=== PATIENT | male | born 1940 | race Caucasian/White ===

== ENCOUNTER → 2018-01-26 | Outpatient (CLI) | payer MEDICARE, BC ==
--- NOTE | 2018-01-26 13:25 | XR ---
EXAMINATION TYPE: XR chest 2V DATE OF EXAM: 01/26/2018 COMPARISON: 02/15/2012 HISTORY: 78-year-old male with persistent cough for 2 weeks, previous right lower lobectomy for mesot helioma. TECHNIQUE: Frontal and lateral views FINDINGS: Heart normal size. Aorta and pulmonary vasculature within normal limits. Focal right basilar opacitie s with blunted costophrenic angle are unchanged from 2012 suggesting pleural-parenchymal scarring and volume loss relating to the patient's prior lobectomy. There is a focal density peripheral right low er lung and a more vague density peripheral left midlung which are stable. Calcifications along the h emidiaphragm on the lateral view are unchanged. No new area of consolidation or pleural effusion seen . IMPRESSION: Chronic changes with postlobectomy changes on the right and vague densities on both sides probably re lated to pleural plaques. Underlying COPD. No acute change from 2012. For more detailed assessment of the parenchyma, especially given the patient's past history of neoplasm, a CT can be performed.
== END | disposition home or self-care (01) ==
LOC: RADXRMAIN 12:47
PROVIDERS: ATTEND Internal Medicine
DX: J44.9 Chronic obstructive pulmonary disease, unspecified (principal); J98.4 Other disorders of lung; Z85.89 Personal history of malignant neoplasm of other organs and systems; Z90.2 Acquired absence of lung [part of]
CPT/HCPCS: 71046

== ENCOUNTER → 2019-07-25 | Outpatient (CLI) | payer MEDICARE ==
[~2019-07-25] MED LIST: REGADENOSON 0.4 MG/5 ML SYRINGE IV ONE
--- NOTE | 2019-07-25 11:00 | ECHOF ---
Referral Reason:R06.02 SOB, R07.9 CP MEASUREMENTS -------- HEIGHT: 182.9 cm WEIGHT: 113.4 kg BP: IVSd: 0.9 cm (0.6 - 1.1) LVIDd: 4.5 cm (3.9 - 5.3) LVPWd: 1.0 cm (0.6 - 1.1) IVSs: 1.2 cm LVIDs: 2.3 cm LVPWs: 1.2 cm LAESV Index (A-L): 17.43 ml/m Ao Diam: 3.4 cm (2.0 - 3.7) AV Cusp: 2.5 cm (1.5 - 2.6) LA Diam: 4.0 cm (2.7 - 3.8) MV E Seb: 0.98 m/s MV DecT: 188 ms MV A Seb: 1.09 m/s MV E/A Ratio: 0.89 RAP: 5.00 mmHg RVSP: 8.03 mmHg TAPSE: 2.91 cm FINDINGS -------- Sinus rhythm. This was a technically adequate study. The left ventricular size is normal. Left ventricular wall thickness is normal. Overall left vent ricular systolic function is normal with, an EF between 55 - 60 %. The diastolic filling pattern is normal for the age of the patient 14.53. The right ventricle is normal in size. Normal LA size by volume 22+/-6 ml/m2. The right atrial size is normal. Interatrial and interventricular septum intact. The aortic valve is trileaflet, and appears structurally normal. No aortic stenosis or regurgitation. The mitral valve leaflets are mildly thickened. There is trace to mild mitral regurgitation. The tricuspid valve appears structurally normal. Trace tricuspid regurgitation present. Right ben tricular systolic pressure is normal at < 35 mmHg. There is no pulmonic regurgitation present. The aortic root size is normal. Normal inferior vena cava with normal inspiratory collapse consistent with estimated right atrial pre ssure of 5 mmHg. There is no pericardial effusion. CONCLUSIONS -------- 1. Sinus rhythm. 2. This was a technically adequate study. 3. The left ventricular size is normal. 4. Left ventricular wall thickness is normal. 5. Overall left ventricular systolic function is normal with, an EF between 55 - 60 %. 6. The diastolic filling pattern is normal for the age of the patient 14.53 7. Normal LA size by volume 22+/-6 ml/m2. 8. The aortic valve is trileaflet, and appears structurally normal. No aortic stenosis or regurgitati on. 9. The mitral valve leaflets are mildly thickened. 10. There is trace to mild mitral regurgitation. 11. The tricuspid valve appears structurally normal. 12. Trace tricuspid regurgitation present. 13. Right ventricular systolic pressure is normal at < 35 mmHg. 14. There is no pulmonic regurgitation present. 15. The aortic root size is normal. 16. Normal inferior vena cava with normal inspiratory collapse consistent with estimated right atrial pressure of 5 mmHg. 17. There is no pericardial effusion. JINRIKISHA DRIVER: Zahra Pascal RDCS
--- NOTE | 2019-07-25 11:58 | NM ---
EXAMINATION TYPE: NM stress lexiscan cardiolite DATE OF EXAM: 07/25/2019 COMPARISON: NONE HISTORY: This of breath, hypertension and COPD TECHNIQUE: After the intravenous administration of 10.55 mCi Tc 99m Sestamibi - Cardiolite resting S PECT images acquired 45 minutes post injection. The patient received 0.4mg Lexiscan, 25.2 mCi Tc 99m Sestamibi - Stress images obtained [address] injection FINDINGS: Review of stress and rest SPECT images demonstrates no distinct perfusion abnormality. Gated analysi s shows normal wall motion with an estimated left ventricular ejection fraction of 72 %. Consider echocardiographic correlation for elevated ejection fraction. No pharmacologically induced l eft ventricular myocardial ischemia is evident IMPRESSION: No scintigraphic evidence for reversible ischemia.
--- NOTE | 2019-07-25 11:59 | EST ---
EXERCISE STRESS DATE OF SERVICE: 07/25/2019 AGE: 79 SEX: Male HT: 72" WT: 250 pounds PROTOCOL: Lexiscan Cardiolite STAGE: DURATION OF EXERCISE: HEART RATE REST: 68 BLOOD PRESSURE REST: 129/68 MAXIMUM HEART RATE ACHIEVED: 85 MAXIMUM BLOOD PRESSURE: 150/55 85% MPHR: 100% MPHR: METS: INDICATIONS: CLINICAL INFORMATION: Baseline rhythm is sinus mechanism, rate of 68, normal axis and intervals, normal electrocardiogram. Baseline blood pressure 129/68 mmHg. Patient received an injection of Lexiscan. Electrocardiograph monitoring revealed no evidence of diagnostic ischemic ST deviation. Cardiolite was injected per protocol. CONCLUSION: 1. Nondiagnostic electrocardiograph stress testing. 2. Nuclear images will be reported separately. MMODL / IJN: [id number] /
== END | disposition home or self-care (01) ==
LOC: RADNMMAIN 08:10
PROVIDERS: ATTEND Internal Medicine Interventional Cardiology
DX: I34.0 Nonrheumatic mitral (valve) insufficiency (principal); R07.9 Chest pain, unspecified
CPT/HCPCS: 93017; 93306; 78452; A9500; J2785

== ENCOUNTER → 2019-08-23 | Outpatient (CLI) | payer MEDICARE ==
[2019-08-23 13:19] LABS: African American GFR (CKD) >90 (>60 ml/min/1.73 sqM); Blood Urea Nitrogen 16 mg/dL (9-20)
--- NOTE | 2019-08-23 16:27 | CT ---
EXAMINATION TYPE: CT urogram wo/w con DATE OF EXAM: 08/23/2019 COMPARISON: None INDICATION: Hematospermia history of lung cancer DLP: 3884.1 mGycm, Automated exposure control for dose reduction was used. CONTRAST: 100 mL of Isovue 300. Study performed without Oral Contrast TECHNIQUE: Axial images were obtained from above the diaphragm to the pubic rami in the axial plane a t 5 mm thick sections. Reconstructed images are reviewed on the computer in the coronal plane. FINDINGS: Limited CT sections are obtained the lung bases. The lung bases are clear. Pleural plaques are pres ent. Some calcifications along the right diaphragm. Prior asbestos exposure should be considered. The re is a small nodule in the periphery of the posterior lateral left lung base measuring 0.3 cm. Serie s 6 image 6. Some thickening may be along the anterior left lung base margin. A punctate density with in the peripheral anterior left lung. CT ABDOMEN: Liver: Normal Spleen: Normal Pancreas: Normal Adrenal glands: The adrenal glands are normal. Gallbladder: Normal Kidneys: No masses are evident. No hydronephrosis is present. No cysts are present. Delayed images were obtained through the kidneys, which remain unremarkable. Three-D reconstructed images performed on a separate computer forensic examiner are presented. There is du plication of the right renal collecting system. Renal calyces and infundibulum appear normal. No dila yvonne ureter is evident. The mid to inferior portion of the left ureter and the inferior portion of the right ureters aren't not visualized on the reconstructed images. Source images and reconstructed cor onal images small portion of the distal ureters visualized appear unremarkable. Aorta: Vascular calcification is within the aorta. Inferior vena cava: Normal. CT PELVIS: Loops of bowel within the abdomen and pelvis are normal. Study is performed without oral contrast limiting bowel evaluation. Fecal debris is within the colon. Appendix: Normal as visualized. Urinary bladder: Urinary bladder filling with contrast appears within normal limits Genitourinary structures: Prostate is somewhat prominent. Suspicious changes are now evident. Seminal vesicles appear unremarkable and are likely small. Osseous structures: No suspicious lytic or sclerotic lesions. IMPRESSIONS: 1. Visualized portions of the renal collecting system appear normal on this CT 3-D urogram. 2. Pleural plaques with calcification compatible with prior asbestos exposure
== END | disposition home or self-care (01) ==
LOC: RADCTMAIN 12:37
PROVIDERS: ATTEND Urology
DX: R36.1 Hematospermia (principal); Z88.2 Allergy status to sulfonamides
CPT/HCPCS: 84153; 82565; 84520; 74178; 36415; 74400; Q9967

== ENCOUNTER → 2021-05-13 | Outpatient (CLI) | payer MEDICARE ==
--- NOTE | 2021-05-13 13:52 | XR ---
EXAMINATION TYPE: XR chest 2V DATE OF EXAM: 05/13/2021 COMPARISON: 01/26/2018 HISTORY: H/O Lung CA/SOB TECHNIQUE: Frontal and lateral views of the chest are obtained. FINDINGS: Scattered senescent parenchymal changes noted. Hyperinflation compatible with COPD. Tenting right hem idiaphragm with postoperative changes noted stable relative to the prior study. No evidence for infiltrate. No evidence for atelectasis. Heart size is stable. Mediastinal structures are stable and grossly unremarkable. No evidence for hilar prominence. Degenerative changes dorsal spine. IMPRESSION: 1. No evidence for acute pulmonary disease.
== END | disposition home or self-care (01) ==
LOC: RADXRMAIN 12:02
PROVIDERS: ATTEND Family Medicine
DX: Z08 Encounter for follow-up examination after completed treatment for malignant neoplasm (principal); Z85.118 Personal history of other malignant neoplasm of bronchus and lung; R06.02 Shortness of breath
CPT/HCPCS: 71046

== ENCOUNTER 2021-06-25 08:12 | Day surgery (SDC) | payer MEDICARE ==
[2021-06-22 14:04] VITALS: BMI 31.8
[~2021-06-25 08:12] MED LIST changes: +LACTATED RINGERS 1,000 ML IV SCH; -REGADENOSON 0.4 MG/5 ML SYRINGE IV ONE
[2021-06-25 08:45] VITALS: RESP 18; TEMP 98
[2021-06-25] MEDS ORDERED: LACTATED RINGERS 1,000 ML IV ONE (08:45)
[2021-06-25 08:53] LABS: Glucose,Whole Blood 142 mg/dL (75-99)
[2021-06-25] MEDS ORDERED: LIDOCAINE 1% INJ 10MG/ML (20 ML MDV) ONE (09:25)
[2021-06-25] MEDS ORDERED: PROPOFOL 10 MG/ML 20 ML VIAL IV ONE (09:25)
--- NOTE | 2021-06-25 09:30 | P.GSHP ---
History of Present Illness H&P Date: 06/25/21 Chief Complaint: Screening colonoscopy Is a 81-year-old male who presents today for screening colonoscopy. Patient denies a significant GI complaints. Past Medical History Past Medical History: Cancer, Diabetes Mellitus, Hyperlipidemia, Hypertension Additional Past Medical History / Comment(s): Lung cancer 1997, has some SOB History of Any Multi-Drug Resistant Organisms: None Reported Additional Past Surgical History / Comment(s): Cataract surgery bilat. Lobectomy Past Anesthesia/Blood Transfusion Reactions: No Reported Reaction Smoking Status: Former smoker - Past Family History Mother Family Medical History: Diabetes Mellitus Father Family Medical History: Cancer Medications and Allergies Home Medications Medication Instructions Recorded Confirmed Type Aspirin 81 mg PO DAILY 06/22/21 06/22/21 History Atorvastatin [Lipitor] 80 mg PO HS 06/22/21 06/22/21 History Cholecalciferol (Vitamin D3) 12.5 mcg PO DAILY 06/22/21 06/22/21 History [Vitamin D3 (500 Iu/5 ML)] Fenofibrate Nanocrystallized 48 mg PO DAILY 06/22/21 06/22/21 History [Tricor] Multivitamins, Thera [Multivitamin 1 tab PO DAILY 06/22/21 06/22/21 History (formulary)] Pioglitazone [Actos] 45 mg PO DAILY 06/22/21 06/22/21 History Valsartan 80 mg PO DAILY 06/22/21 06/22/21 History glipiZIDE [Glucotrol] 10 mg PO AC-BRKFST 06/22/21 06/22/21 History Allergies Allergy/AdvReac Type Severity Reaction Status Date / Time Sulfa (Sulfonamide AdvReac Rash/Hives Unverified 06/22/21 13:50 Antibiotics) Surgical - Exam Vital Signs Temp Pulse Resp BP Pulse Ox 98.0 F 92 18 170/74 96 06/25/21 08:44 06/25/21 08:44 06/25/21 08:44 06/25/21 08:44 06/25/21 08:44 - General well developed, well nourished, no distress - Eyes PERRL - ENT normal pinna - Neck no masses - Respiratory normal expansion - Cardiovascular Rhythm: regular - Abdomen Abdomen: soft, non tender Results - Labs Abnormal Lab Results - Last 24 Hours (Table) 06/25/21 Range/Units 08:52 POC Glucose (mg/dL) 142 H (75-99) mg/dL Assessment and Plan Assessment: We'll perform screening colonoscopy
--- NOTE | 2021-06-25 09:44 | P.OP ---
Date of Procedure: 06/25/21 Preoperative Diagnosis: Screening colonoscopy Postoperative Diagnosis: Mild diverticulosis External hemorrhoids Cecum not visualized Procedure(s) Performed: Colonoscopy Anesthesia: MAC Surgeon: Daniel Meadows Pathology: none sent Condition: stable Disposition: PACU Description of Procedure: Patient's placed on the endoscopy table in the lateral position. He received IV cyst. Digital rectal exam was performed which revealed a few external hemorrhoids. Possible colonoscope was then placed patient anus passed with colon. Scope could not passed in the cecum secondary to tortuosity of the bowel in the patient's inability to retain air in the colon. Scope was withdrawn. The remainder the ascending colon, transverse colon and descending colon appeared normal. Sigmoid colon a few scattered diverticula. Scope was then brought back the rectum and this appeared normal. Scope withdrawn for patient.
[2021-06-25 09:51] VITALS: PULSE 93
[2021-06-25 10:03] VITALS: BP 137/74
--- NOTE | 2021-06-25 10:21 | P.OP ---
Date of Procedure: 06/25/21 Preoperative Diagnosis: Screen colonoscopy Postoperative Diagnosis: Normal colon Procedure(s) Performed: Colonoscopy Anesthesia: PATA Surgeon: Daniel Meadows Pathology: none sent Condition: stable Disposition: PACU Description of Procedure: Normal colonoscopy
== END 2021-06-25 10:28 | disposition home or self-care (01) ==
LOC: ORWHC2ENDO 08:12
PROVIDERS: ATTEND Surgery
DX: Z12.11 Encounter for screening for malignant neoplasm of colon (principal); E11.9 Type 2 diabetes mellitus without complications; E78.5 Hyperlipidemia, unspecified; I10 Essential (primary) hypertension; K64.4 Residual hemorrhoidal skin tags; Z79.82 Long term (current) use of aspirin; Z79.84 Long term (current) use of oral hypoglycemic drugs; Z83.3 Family history of diabetes mellitus; Z85.118 Personal history of other malignant neoplasm of bronchus and lung; Z87.891 Personal history of nicotine dependence; Z88.2 Allergy status to sulfonamides
CPT/HCPCS: 45378; J2001; J2704

== ENCOUNTER → 2022-04-02 | Outpatient (CLI) | payer MEDICARE ==
--- NOTE | 2022-04-02 10:13 | CT ---
EXAMINATION TYPE: CT chest wo con DATE OF EXAM: 04/02/2022 COMPARISON: Chest x-ray May 13, 2021 and older study 2018 HISTORY: Emphysema CT DLP: 1016.3 mGycm. Automated Exposure Control for Dose Reduction was Utilized. TECHNIQUE: CT scan of the thorax is performed without IV contrast. High resolution protocol with 1 m m sequences obtained in 10 mm intervals in supine and prone technique. FINDINGS: LUNGS: Calcified bilateral pleural plaques are present suggesting prior his last dose exposure. There is mild to moderate parenchymal fibrotic changes in the mid to lower lungs. Curvilinear small pleura l thickening in the posterior right lung base. No bronchiectasis. No honeycombing or end-stage fibros is. Mild scattered peripheral reticulation. No pleural effusion. MEDIASTINUM: Lack of IV contrast and technique are noted to limit evaluation for mediastinal and minerva cially hilar adenopathy. There are no definitive greater than 1 cm noncalcified mediastinal lymph nod es. Heart size within normal limits. There is moderate to severe three-vessel coronary artery calcifi cation. OTHER: No additional significant abnormality is seen. IMPRESSION: [id number] scattered parenchymal fibrotic changes. Bilateral calcified pleural plaq ues raise concern for prior asbestos exposure. Correlate clinically.
== END | disposition home or self-care (01) ==
LOC: RADCTMAIN 08:49
PROVIDERS: ATTEND Internal Medicine Critical Care Medicine
DX: J43.9 Emphysema, unspecified (principal)
CPT/HCPCS: 71250

== ENCOUNTER 2024-03-15 09:09 | Observation (INO) | payer MEDICARE ==
--- NOTE | 2024-03-15 10:11 | CT ---
EXAMINATION TYPE: CT brain melyssa dale con DATE OF EXAM: 03/15/2024 COMPARISON: None. HISTORY: fall CT DLP: 1323.[address] of the brain was performed. The ventricles, basal cisterns and sulci overlying the cerebral convexities demonstrate mild enlargem ent. There is no evidence for intracranial hemorrhage or sulcal effacement. There is decreased attenuatio n about the periventricular white matter and deep white matter of both cerebral hemispheres, compatib le with chronic small vessel ischemia. No mass effects are seen. If symptoms persist consider MRI. Osseous calvarium is intact. IMPRESSION: 1. Age related atrophic and chronic small vessel ischemic change without acute intracranial process seen at this time. CT Cervical Spine: Unenhanced CT of the cervical spine was performed with bone and soft tissue window settings submitted . Coronal and sagittal reconstruction is obtained. There is normal alignment and prevertebral soft tissues. No evidence for acute cervical fracture . Scattered degenerative disc disease and spondylosis. Biapical scarring. IMPRESSION: 1. No evidence for acute fracture or subluxation of the cervical spine.
--- NOTE | 2024-03-15 10:16 | ED ---
General Adult HPI - General Chief complaint: Fall Stated complaint: fall Time Seen by Provider: 03/15/24 09:22 Source: patient, RN notes reviewed, old records reviewed Mode of arrival: ambulatory Limitations: no limitations - History of Present Illness Initial comments: 84-year-old male presenting from home status post weakness with 2 falls. Patient had initially fall after getting up from his chair with left leg weakness falling onto his knees and twisting his ankle. He did have head trauma with no LOC. He is complaining of some neck pain. Patient had significant difficulty ambulating after these falls and paramedics were called for lift assi st. Ultimately the patient woke up this morning with continued weakness and had contacted his son who brought him to the emergency room. - Related Data Home Medications Medication Instructions Recorded Confirmed Aspirin 81 mg PO DAILY 06/22/21 06/22/21 Atorvastatin [Lipitor] 80 mg PO HS 06/22/21 06/22/21 Cholecalciferol (Vitamin D3) 12.5 mcg PO DAILY 06/22/21 06/22/21 [Vitamin D3 (500 Iu/5 ML)] Fenofibrate Nanocrystallized 48 mg PO DAILY 06/22/21 06/22/21 [Tricor] Multivitamins, Thera [Multivitamin 1 tab PO DAILY 06/22/21 06/22/21 (formulary)] Pioglitazone [Actos] 45 mg PO DAILY 06/22/21 06/22/21 Valsartan 80 mg PO DAILY 06/22/21 06/22/21 glipiZIDE [Glucotrol] 10 mg PO AC-[id number] 06/22/21 06/22/21 Allergies Allergy/AdvReac Type Severity Reaction Status Date / Time Sulfa (Sulfonamide AdvReac Rash/Hives Unverified 03/15/24 09:19 Antibiotics) Review of Systems ROS Statement: Those systems with pertinent positive or pertinent negative responses have been documented in the HPI. ROS Other: All systems not noted in ROS Statement are negative. Past Medical History Past Medical History: Diabetes Mellitus, Hyperlipidemia History of Any Multi-Drug Resistant Organisms: None Reported Past Surgical History: No Surgical Hx Reported Past Psychological History: No Psychological Hx Reported Smoking Status: Former smoker Past Alcohol Use History: Occasional Past Drug Use History: None Reported General Exam Limitations: no limitations General appearance: alert, in no apparent distress Head exam: Present: atraumatic, normocephalic Eye exam: Present: normal appearance, PERRL ENT exam: Present: normal exam Neck exam: Present: normal inspection. Absent: tenderness, meningismus Respiratory exam: Present: normal lung sounds bilaterally. Absent: respiratory distress, wheezes Cardiovascular Exam: Present: regular rate, normal rhythm GI/Abdominal exam: Present: soft. Absent: distended, tenderness, guarding Extremities exam: Present: joint swelling (Mild soft tissue swelling bilateral knees) Neurological exam: Present: alert, oriented X3, CN II-XII intact. Absent: motor sensory deficit Skin exam: Present: warm, dry, intact Course Vital Signs 03/15/24 03/15/24 03/15/24 09:16 10:28 12:32 Temperature 98.3 F 97.8 F 98.1 F Pulse Rate 102 H 100 89 Respiratory 20 18 18 Rate Blood Pressure 126/74 122/75 131/75 O2 Sat by Pulse 99 96 96 Oximetry Medical Decision Making - Medical Decision Making Was pt. sent in by a medical professional or institution (, PA, FILEMAKER DEVELOPER, urgent care, hospital, or intermediate...) When possible be specific @ -No Did you speak to anyone other than the patient for history (EMS, parent, family, police, friend...)? What history was obtained from this source @ -No Did you review nursing and triage notes (agree or disagree)? Why? @ -I reviewed and agree with nursing and triage notes Were old charts reviewed (outside hosp., previous admission, EMS record, old EKG, old radiological studies, urgent care reports/EKG's, intermediate records)? Report findings @ -No old charts were reviewed Differential Musculoskeletal Muscular strain, contusion, ligament sprain, fracture, arthritis, septic arthritis, bursitis, cellulitis, muscle spasm, nerve compression, DVT, arterial occlusion, herpes zoster, electrolyte abnormality, tumor.... This is not meant to be in all inclusive list EKG interpreted by me (3pts min.). @ -As above X-rays interpreted by me (1pt min.). @ -[X-rays of the bilateral knees and left ankle are negative for displaced fracture CT interpreted by me (1pt min.). @ -CT brain and C-spine negative for traumatic injury. U/S interpreted by me (1pt. min.). @ -None done What testing was considered but not performed or refused? (CT, X-rays, U/S, labs)? Why? @ -None What meds were considered but not given or refused? Why? @ -None Did you discuss the management of the patient with other professionals (professionals i.e. , PA, FILEMAKER DEVELOPER, lab, RT, psych nurse, social media intern, deputy attorney general, teacher, first aid officer, ed case manager)? Give summary @ -Dr. Garcia, will admit Was smoking cessation discussed for >3mins.? @ -No Was critical care preformed (if so, how long)? @ -No Were there social determinants of health that impacted care today? How? (Homelessness, low income, unemployed, alcoholism, drug addiction, transportation, low edu. Level, literacy, decrease access to med. care, fdc, rehab)? @ -No Was there de-escalation of care discussed even if they declined (Discuss DNR or withdrawal of care, Hospice)? DNR status @ -No What co-morbidities impacted this encounter? (DM, HTN, Smoking, COPD, CAD, Cancer, CVA, ARF, Chemo, Hep., AIDS, mental health diagnosis, sleep apnea, morbid obesity)? @ -None Was patient admitted / discharged? Hospital course, mention meds given and route, prescriptions, significant lab abnormalities, going to OR and other pertinent info. @ -84-year-old male with multiple falls over the past 12 hours, weakness in the lower extremities. Workup for traumatic injury is negative. The patient does have gait instability and lives alone. He will be placed in observation with consult to PT for evaluation. Undiagnosed new problem with uncertain prognosis? @ -No Drug Therapy requiring intensive monitoring for toxicity (Heparin, Nitro, Insulin, Cardizem)? @ -No Were any procedures done? @ -No Diagnosis/symptom? @Gait instability, frequent fall Acute, or Chronic, or Acute on Chronic? @ -Acute Uncomplicated (without systemic symptoms) or Complicated (systemic symptoms)? @ -Default Side effects of treatment? @ -No Exacerbation, Progression, or Severe Exacerbation? @ -No Poses a threat to life or bodily function? How? (Chest pain, USA, SD, pneumonia, PE, COPD, DKA, ARF, appy, cholecystitis, CVA, Diverticulitis, Homicidal, Suicidal, threat to staff... and all critical care pts) @ -No - Lab Data Result diagrams: 03/15/24 11:52 03/15/24 11:52 Lab Results 03/15/24 03/15/24 03/15/24 Range/Units 11:52 11:52 11:52 WBC 7.6 (3.8-10.6) k/uL RBC 4.30 (4.30-5.90) m/uL Hgb 14.7 (13.0-17.5) gm/dL Hct 44.2 (39.0-53.0) % MCV 102.8 H (80.0-100.0) fL MCH 34.2 (25.0-35.0) pg MCHC 33.2 (31.0-37.0) g/dL RDW 13.3 (11.5-15.5) % Plt Count 240 (150-450) k/uL MPV 7.0 Neutrophils % 79 % Lymphocytes % 12 % Monocytes % 6 % Eosinophils % 0 % Basophils % 1 % Neutrophils # 6.0 (1.3-7.7) k/uL Lymphocytes # 0.9 L (1.0-4.8) k/uL Monocytes # 0.5 (0-1.0) k/uL Eosinophils # 0.0 (0-0.7) k/uL Basophils # 0.0 (0-0.2) k/uL Macrocytosis Slight Sodium 133 L (137-145) mmol/L Potassium 4.4 (3.5-5.1) mmol/L Chloride 100 (98-107) mmol/L Carbon Dioxide 25 (22-30) mmol/L Anion Gap 8 mmol/L BUN 12 (9-20) mg/dL Creatinine 0.64 L (0.66-1.25) mg/dL Est GFR (CKD-EPI)AfAm >90 (>60 ml/min/1.73 sqM) Est GFR (CKD-EPI)NonAf >90 (>60 ml/min/1.73 sqM) Glucose 115 H (74-99) mg/dL POC Glucose (mg/dL) (70-110) mg/dL POC Glu Investigation Officer ID Calcium 8.7 (8.4-10.2) mg/dL Total Bilirubin 1.2 (0.2-1.3) mg/dL AST 43 (17-59) U/L ALT 26 (4-49) U/L Alkaline Phosphatase 82 (38-126) U/L Total Protein 7.0 (6.3-8.2) g/dL Albumin 4.2 (3.5-5.0) g/dL Urine Color Colorless Urine Appearance Clear (Clear) Urine pH 5.0 (5.0-8.0) Ur Specific [place] 1.019 (1.001-1.035) Urine Protein Negative (Negative) Urine Glucose (UA) 4+ H (Negative) Urine Ketones 1+ H (Negative) Urine Blood Negative (Negative) Urine Nitrite Negative (Negative) Urine Bilirubin Negative (Negative) Urine Urobilinogen <2.0 (<2.0) mg/dL Ur Leukocyte Esterase Negative (Negative) 03/15/24 Range/Units 12:47 WBC (3.8-10.6) k/uL RBC (4.30-5.90) m/uL Hgb (13.0-17.5) gm/dL Hct (39.0-53.0) % MCV (80.0-100.0) fL MCH (25.0-35.0) pg MCHC (31.0-37.0) g/dL RDW (11.5-15.5) % Plt Count (150-450) k/uL MPV Neutrophils % % Lymphocytes % % Monocytes % % Eosinophils % % Basophils % % Neutrophils # (1.3-7.7) k/uL Lymphocytes # (1.0-4.8) k/uL Monocytes # (0-1.0) k/uL Eosinophils # (0-0.7) k/uL Basophils # (0-0.2) k/uL Macrocytosis Sodium (137-145) mmol/L Potassium (3.5-5.1) mmol/L Chloride (98-107) mmol/L Carbon Dioxide (22-30) mmol/L Anion Gap mmol/L BUN (9-20) mg/dL Creatinine (0.66-1.25) mg/dL Est GFR (CKD-EPI)AfAm (>60 ml/min/1.73 sqM) Est GFR (CKD-EPI)NonAf (>60 ml/min/1.73 sqM) Glucose (74-99) mg/dL POC Glucose (mg/dL) 118 H (70-110) mg/dL POC Glu Investigation Officer ID Veto [place] Calcium (8.4-10.2) mg/dL Total Bilirubin (0.2-1.3) mg/dL AST (17-59) U/L ALT (4-49) U/L Alkaline Phosphatase (38-126) U/L Total Protein (6.3-8.2) g/dL Albumin (3.5-5.0) g/dL Urine Color Urine Appearance (Clear) Urine pH (5.0-8.0) Ur Specific [place] (1.001-1.035) Urine Protein (Negative) Urine Glucose (UA) (Negative) Urine Ketones (Negative) Urine Blood (Negative) Urine Nitrite (Negative) Urine Bilirubin (Negative) Urine Urobilinogen (<2.0) mg/dL Ur Leukocyte Esterase (Negative) Disposition Clinical Impression: Fall, Gait instability Disposition: ADMITTED IP TO THIS [facility] Condition: Stable Is patient prescribed a controlled substance at d/c from ED?: No Referrals: Nazario Morin MD [Primary Care Provider] - 1-2 days Time of Disposition: 12:57
--- NOTE | 2024-03-15 11:07 | XR ---
EXAMINATION TYPE: XR knee complete bilateral DATE OF EXAM: 03/15/2024 10:22 AM CLINICAL INDICATION:Male, 84 years old with history of fall; COMPARISON: None. TECHNIQUE: XR knee complete bilateral; examined in Frontal, lateral and oblique projections. FINDINGS: No evidence of any acute osseous pathology, soft tissue swelling, or joint effusion is no yvonne. Tricompartmental osteophyte formation involving the femoral condyles, tibial plateau and patella . Mild joint space narrowing. Discussed the arterial vasculature. Fabella is seen bilaterally. IMPRESSION: 1. No acute osseous pathology. 2. Moderate tricompartmental osteoarthritic changes bilaterally.
--- NOTE | 2024-03-15 11:09 | XR ---
EXAMINATION TYPE: XR ankle complete LT DATE OF EXAM: 03/15/2024 10:22 AM CLINICAL INDICATION:Male, 84 years old with history of fall; COMPARISON: None TECHNIQUE: XR ankle complete LT; ankle is imaged in frontal, lateral and oblique projections. FINDINGS: There is no evidence of acute osseous pathology. The joint spaces are well-preserved without evidenc e of subluxation or dislocation. Kager's fat pad is intact. Mild soft tissue swelling around the ankl e. No radiopaque foreign bodies are identified. Multifocal degeneration changes throughout the joints of the foot with osteophyte formation and joint space narrowing. Atherosclerosis of the arterial vasculature. Calcaneal plantar spurring. IMPRESSION: 1. No evidence of acute fracture. 2. Subcutaneous swelling around the ankle likely secondary to underlying soft tissue injury.
[2024-03-15] MEDS: SODIUM CHLORIDE 0.9% 500 ML 500 ML IV ONE (11:57)
[2024-03-15 12:14] LABS: Appearance,Urine Clear (Clear); Bilirubin,Urine Negative (Negative); Blood,Urine Negative (Negative); Color,Urine Colorless; Glucose,Urine (UA) 4+ (Negative); Ketones,Urine 1+ (Negative); Leukocyte Esterase,Urine Negative (Negative); Nitrite,Urine Negative (Negative); Protein,Urine Negative (Negative); Specific Gravity,Urine 1.019 (1.001-1.035); Urobilinogen,Urine <2.0 mg/dL (<2.0)
[2024-03-15 12:21] LABS: ALT 26 U/L (4-49); AST 43 U/L (17-59); African American GFR (CKD) >90 (>60 ml/min/1.73 sqM); Albumin 4.2 g/dL (3.5-5.0); Alkaline Phosphatase 82 U/L (38-126); Anion Gap 8 mmol/L; Blood Urea Nitrogen 12 mg/dL (9-20); Calcium 8.7 mg/dL (8.4-10.2); Carbon Dioxide 25 mmol/L (22-30); Chloride 100 mmol/L (98-107); Glucose 115 mg/dL (74-99); Non-African American GFR(CKD) >90 (>60 ml/min/1.73 sqM); Potassium 4.4 mmol/L (3.5-5.1); Sodium 133 mmol/L (137-145); Total Bilirubin 1.2 mg/dL (0.2-1.3)
[2024-03-15 12:24] LABS: Basophils % (A) 1 %; Eosinophils % (A) 0 %; HCT 44.2 % (39.0-53.0); HGB 14.7 gm/dL (13.0-17.5); Lymphocytes # (A) 0.9 k/uL (1.0-4.8); Lymphocytes % (A) 12 %; MCH 34.2 pg (25.0-35.0); MCHC 33.2 g/dL (31.0-37.0); MCV 102.8 fL (80.0-100.0); Macrocytosis Slight; Monocytes # (A) 0.5 k/uL (0-1.0); Monocytes % (A) 6 %; Neutrophils % (A) 79 %; Platelet Count 240 k/uL (150-450); RDW 13.3 % (11.5-15.5); WBC 7.6 k/uL (3.8-10.6)
[2024-03-15] MEDS: SODIUM CHLORIDE 0.9% 1,000 ML IV SCH (12:46)
[2024-03-15 12:49] LABS: Glucose,Whole Blood 118 mg/dL (70-110)
[2024-03-15] MEDS ORDERED: NALOXONE 0.4 MG/ML 1 ML VIAL IV PRN (12:54)
[2024-03-15] MEDS ORDERED: ALBUTEROL HFA INHALER INHALATION PRN (14:30)
[2024-03-15] MEDS: HYDROcodone/APAP 5-325MG 1 EACH TAB PO PRN (15:14)
[2024-03-15] MEDS ORDERED: DEXTROSE 50% SYRINGE 50 ML IVP PRN ×2 (16:41)
[2024-03-15 17:01] LABS: Glucose,Whole Blood 137 mg/dL (70-110)
--- NOTE | 2024-03-15 17:05 | P.HPIM ---
History of Present Illness H&P Date: 03/15/24 Patient is a 84-year-old male with a history of diabetes mellitus type 2 controlled on orals, hypertension, dyslipidemia, and COPD stage III with alcohol dependency who presented to the emergency department after falls. Patient was getting up from his chair when his left leg gave out from him and he noted it to be numb, he then fell 2 more times after this. On arrival to the ER he was noted to be tachycardic with a pulse of 102. The remainder of his vital signs were normal. Initial laboratory analysis consisted of CBC, CMP, and urinalysis which were remarkable for sodium was 133, and 4+ glucose in his urine. He underwent CT head and cervical spine which demonstrated age-related atrophic and small vessel ischemic changes without acute process, and no fracture or subluxation of the cervical spine. He underwent x-ray of his bilateral knees which showed moderate osteoarthritis but no acute pathology. He underwent x-ray of left ankle which demonstrated some swelling likely related to soft tissue injury but no evidence of fracture. He was placed in observation. Patient seen and examined at bedside. He reports that yesterday he was sitting in his chair and he woke up and went to stand. His left leg gave out from underneath him and he noted it to be numb. He was unable to get himself up EMS came and helped him to get into bed. His left leg then continued to feel weak. He got up again to go to the bathroom and fell. That time he was able to get himself back to bed using his hands and bed frame and dresser to pull himself up. He then again fell 1 more time this morning. They therefore came to the emergency department. He is noting pain in his bilateral knees, neck, and left ankle. He continues to feel weakness in his left leg. When they attempted to ambulate him in the emergency department he very unsteady on his feet and they asked for observation. Patient denies any difficulty with his left leg prior. He does have a history of neuropathy and has some chronic numbness in his legs. He now does feel that his left leg is weak. He denies any history of heart attack or stroke. Vital signs reviewed General: nontoxic, no distress, appears at stated age Derm: warm, dry Eyes: EOMI, no lid lag, anicteric sclera, pupils equal round reactive to light ENT: Nose and ears atraumatic Cardiovascular: S1S2 reg, no murmur, no edema Lungs: clear to auscultation bilateral, no rhonchi, no rales, no wheeze, no accessory muscle use Abdominal: soft, nontender to palpation, no guarding Ext: no gross muscle atrophy, no contractures For negative anterior and posterior drawer on bilateral knees, negative valgus and varus distraction bilateral knees, pain to palpation over left lateral malleolus with increased pain on inversion of the ankle. Forrest light swelling left ankle. Neuro: CN II-XII grossly intact, for finger-nose on the right, intact finger-to- nose on the left. Unable to perform [id number] using left foot due to pain, normal heel martin using right foot. Muscle strength 5 out of 5 with flexion extension at the elbow and shoulder and wrist as well as supination. Downward heel drift left leg at approximately 10 seconds, right leg normal. Light touch intact all 4 extremities. Psych: Alert, oriented, appropriate affect Assessment/Plan: Left leg weakness Fall, without loss of consciousness Dyslipidemia -Concern for possible stroke versus acute arthritis flare -Telemetry, consult neurology, neurochecks, aspirin 325 mg p.o. once then daily aspirin, Lipitor 80 mg daily, echocardiogram, carotid Dopplers -PT/OT/speech recommendations -Case discussed with Dr. Peraza and notified of consultation -Check lipid profile -Hold valsartan for 24 hours of permissive hypertension - check B 12 and vit D level Grade 1 Left Ankle Sprain - Abel weap -Rest -Elevation -Ice Diabetes mellitus type 2 on oral medications -Sliding scale insulin, follow blood sugars, check A1c -Metformin on hold -Continue with Tradjenta 5 mg daily and Farxiga 10 mg daily Daily ETOH us - Check CIWA scores - Thiamine 100 mg daily and folic acid 1 mg daily - no ativan due to advance age, nursing to call provider if CIWA > 10 COPD stage III - resume home brochdilator regiment Imaging: as per HPI Data Review: as per HPI The patient is placed in observation status with anticipated less than 2 midnight stay for left lower extremity weakness and possible TIA Surrogate decision-maker: Daughter CODE STATUS: DNR DVT prophylaxis: Lovenox Anticipated discharge date: 24-[address]: home [facility] This dictation was prepared using dragon medical voice recognition software. Though every attempt is made to correct errors during dictation some may still exist. Past Medical History Past Medical History: COPD, Diabetes Mellitus, Hyperlipidemia, Hypertension History of Any Multi-Drug Resistant Organisms: None Reported Past Surgical History: No Surgical Hx Reported Past Psychological History: No Psychological Hx Reported Smoking Status: Former smoker Past Alcohol Use History: Occasional Past Drug Use History: None Reported Medications and Allergies Home Medications Medication Instructions Recorded Confirmed Type Aspirin 81 mg PO DAILY 06/22/21 03/15/24 History Atorvastatin [Lipitor] 80 mg PO HS 06/22/21 03/15/24 History Fenofibrate Nanocrystallized 48 mg PO DAILY 06/22/21 03/15/24 History [Tricor] Multivitamins, Thera [Multivitamin 1 tab PO DAILY 06/22/21 03/15/24 History (formulary)] Valsartan 80 mg PO DAILY 06/22/21 03/15/24 History Albuterol Inhaler [Ventolin Hfa 2 puff INHALATION RT-Q6H PRN 03/15/24 03/15/24 History Inhaler] Cholecalciferol [Vitamin D3 (25 50 mcg PO DAILY 03/15/24 03/15/24 History Mcg = 1000 Iu)] Cinnamon Bark [Cinnamon] 2,000 mg PO DAILY 03/15/24 03/15/24 History Empagliflozin/Linagliptin 1 tab PO DAILY 03/15/24 03/15/24 History [Glyxambi 25 mg-5 mg Tablet] Fexofenadine HCl [Henny Allergy] 180 mg PO DAILY 03/15/24 03/15/24 History Fluticasone/Umeclidin/Vilanter 1 puff INHALATION DIRECTED 03/15/24 03/15/24 History [Trelegy Ellipta 100-62.5-25] Fluticasone/Umeclidin/Vilanter 1 puff INHALATION RT-HS 03/15/24 03/15/24 History [Trelegy Ellipta 200-62.5-25] [place]-3/Dha/Epa/Fish Oil [Fish Oil 2 cap PO DAILY 03/15/24 03/15/24 History 1,000 mg Softgel] metFORMIN HCL ER [Glucophage XR] 500 mg PO DAILY 03/15/24 03/15/24 History Allergies Allergy/AdvReac Type Severity Reaction Status Date / Time Sulfa (Sulfonamide AdvReac Rash/Hives Verified 03/15/24 13:17 Antibiotics) Physical Exam Osteopathic Statement: *. No significant issues noted on an osteopathic structural exam other than those noted in the History and Physical/Consult. Vitals: Vital Signs Temp Pulse Pulse Pulse Pulse Resp BP 03/15/24 16:55 93 109 H 91 03/15/24 12:32 98.1 F 89 18 131/75 03/15/24 10:28 97.8 F 100 18 122/75 03/15/24 09:16 98.3 F 102 H 20 126/74 BP BP BP Pulse Ox 03/15/24 16:55 125/74 131/84 145/76 03/15/24 12:32 96 03/15/24 10:28 96 03/15/24 09:16 99 Intake and Output 03/15/24 03/15/24 03/15/24 06:59 14:59 22:59 Other: Weight 91.172 kg Results CBC & Chem 7: 03/15/24 11:52 03/15/24 11:52 Labs: Abnormal Lab Results - Last 24 Hours (Table) 03/15/24 03/15/24 03/15/24 Range/Units 11:52 11:52 11:52 MCV 102.8 H (80.0-100.0) fL Lymphocytes # 0.9 L (1.0-4.8) k/uL Sodium 133 L (137-145) mmol/L Creatinine 0.64 L (0.66-1.25) mg/dL Glucose 115 H (74-99) mg/dL POC Glucose (mg/dL) (70-110) mg/dL Urine Glucose (UA) 4+ H (Negative) Urine Ketones 1+ H (Negative) 03/15/24 Range/Units 12:47 MCV (80.0-100.0) fL Lymphocytes # (1.0-4.8) k/uL Sodium (137-145) mmol/L Creatinine (0.66-1.25) mg/dL Glucose (74-99) mg/dL POC Glucose (mg/dL) 118 H (70-110) mg/dL Urine Glucose (UA) (Negative) Urine Ketones (Negative)
[2024-03-15] MEDS ORDERED: HYDROcodone/APAP 10-325MG 1 EACH TAB PO PRN (17:11)
[2024-03-15] MEDS: INSULIN ASPART (NovoLOG) 100 UNIT/ML VIAL SQ SCH (17:46)
[2024-03-15] MEDS: ASPIRIN 325 MG TAB PO STA (17:47)
--- NOTE | 2024-03-15 19:57 | US ---
EXAMINATION TYPE: US carotid duplex BILAT DATE OF EXAM: 03/15/2024 COMPARISON: NONE CLINICAL INDICATION: Male, 84 years old with history of Stenosis; hx of falls and dizziness TECHNIQUE: Carotid duplex ultrasound examination. Indirect Doppler criteria was utilized. FINDINGS: EXAM MEASUREMENTS: RIGHT: Peak Systolic Velocity (PSV) cm/sec ----- Right CCA: 80.2 ----- Right ICA: 73.1 ----- Right ECA: 119 ICA/CCA ratio: 0.91 RIGHT: End Diastole cm/sec ----- Right CCA: 9.5 ----- Right ICA: 10.7 ----- Right ECA: 12.4 LEFT: Peak Systolic Velocity (PSV) cm/sec ----- Left CCA: 102 ----- Left ICA: 118 ----- Left ECA: 118 ICA/CCA ratio: 1.16 LEFT: End Diastole cm/sec ----- Left CCA: 7.7 ----- Left ICA: 33.0 ----- Left ECA: 10.5 VERTEBRALS (direction of flow): Right Vertebral: Antegrade Left Vertebral: Antegrade Rhythm: Normal Plaque noted in bilateral bulbs IMPRESSION: Bilateral Carotid Duplex Ultrasound: No hemodynamically significant stenosis. Criteria for Assigning % of Stenosis / Diameter reduction (Estimation based on the indirect measurements of the internal carotid artery velocities (ICA PSV). 1. Normal (no stenosis)=ICA PSV < 125 cm/s: ratio < 2.0: ICA EDV<40 cm/s. 2. Less than 50% stenosis=ICA PSV < 125 cm/s: ratio < 2.0: ICA EDV<40 cm/s. 3. 50 to 69% stenosis=ICA PSV of 125 to 230 cm/s: ration 2.0 ? 4.0: ICA EDV 40-100 cm/s. 4. Greater than 70% stenosis to near occlusion= ICA PSV > 230 cm/s: ratio > 4.0: ICA EDV > 100 cm/s. 5. Near occlusion= ICA PSV velocities may be low or undetectable: variable ratio and ICA EDV. 6. Total occlusion=unable to detect flow.
[2024-03-15 20:38] LABS: Glucose,Whole Blood 144 mg/dL (70-110)
[2024-03-15] MEDS: IPRATROPIUM 0.5 MG/2.5 ML NEBU INHALATION SCH (20:51)
[2024-03-15] MEDS: SYMBICORT 160-4.5 MCG INHALER INHALATION SCH (20:51)
[2024-03-15] MEDS: ATORVASTATIN 80 MG TAB PO SCH (21:23)
[2024-03-16 05:55] LABS: Glucose,Whole Blood 122 mg/dL (70-110)
--- NOTE | 2024-03-16 07:13 | CA ---
Transthoracic Echo Report Name: Kt Rushing Age: 84 Gender: M : 1940 Exam Date: 03/15/2024 17:02 Exam Location: [place] [facility] Ht (in): 72 Wt (lb): 201 Ordering Physician: Purvi Hough DO Attending/Referring Phys: [id number], [employer] Executive Director Corinne Webb RDCS Procedure CPT: Indications: Thrombus Cardiac Hx: Technical Quality: Technically difficult study Contrast 1: Definity Total Dose (mL): 2 Contrast 2: Total Dose (mL): MEASUREMENTS (Male / Female) Normal Values 2D ECHO LVOT Diameter 2.2 cm Aortic Root Diameter 3.8 cm LV Diastolic Volume MOD BP 91.9 cm??? 67 - 155 / 56 - 104 cm??? LV Systolic Volume MOD BP 33.9 cm??? 22 - 58 / 19 - 49 cm??? LV Ejection Fraction MOD BP 63.1 % >= 55 % LV Cardiac Index MOD BP 2411.3 cm???/min???m??? LV Diastolic Volume MOD 4C 106.7 cm??? LV Systolic Volume MOD 4C 30.8 cm??? LV Ejection Fraction MOD 4C 71.1 % LV Cardiac Index MOD 4C 3155.2 cm???/min???m??? LV Diastolic Length 4C 8.7 cm LV Systolic Length 4C 6.7 cm LV Diastolic Volume MOD 2C 75.4 cm??? LV Systolic Volume MOD 2C 37.4 cm??? LV Ejection Fraction MOD 2C 50.4 % LV Cardiac Index MOD 2C 1581.0 cm???/min???m??? LV Diastolic Length 2C 8.3 cm LV Systolic Length 2C 6.9 cm DOPPLER AV Peak Velocity 96.3 cm/s AV Peak Gradient 3.7 mmHg AV Mean Velocity 59.8 cm/s AV Mean Gradient 1.7 mmHg AV Velocity Time Integral 16.4 cm LVOT Peak Velocity 93.8 cm/s LVOT Peak Gradient 3.5 mmHg LVOT Velocity Time Integral 16.7 cm LVOT Stroke Volume 64.7 cm??? LVOT Stroke Volume Index 30.3 ml/m??? LVOT Cardiac Index 2689.7 cm???/min???m??? AV Area Cont Eq vti 3.9 cm??? AV Area Cont Eq pk 3.8 cm??? Mitral E Point Velocity 58.9 cm/s Mitral A Point Velocity 80.0 cm/s Mitral E to A Ratio 0.7 MV Deceleration Time 154.1 ms MV E' Velocity 6.2 cm/s Mitral E to MV E' Ratio 9.6 FINDINGS Left Ventricle Left ventricular ejection fraction is estimated at 55-60 %. Left ventricular cavity size normal. No obvious regional wall motion abnormalities. Right Ventricle Right ventricle not well visualized. Unable to estimate the right ventricular systolic pressure. Right Atrium Right atrium not well visualized. Left Atrium Left atrium not well visualized. Mitral Valve Structurally normal mitral valve. No mitral stenosis, regurgitation or prolapse. Aortic Valve Aortic valve not well visualized. No aortic valve stenosis or regurgitation. Tricuspid Valve Structurally normal tricuspid valve. No tricuspid stenosis. No tricuspid regurgitation. Pulmonic Valve Pulmonic valve not well visualized. Pericardium No pericardial effusion. Aorta Aortic root normal. Ascending aorta not well visualized. CONCLUSIONS Technically difficult study. Definity ECHO contrast used for improved visualization of the endocardial borders (inadequate visualization of two or more contiguous segments). Normal left ventricular size and systolic function Very limited Doppler study Previewed by: Dr. Unique Pugh MD (Electronically Signed) Final Date: 16 Mar 2024 07:12
[2024-03-16] MEDS: FENOFIBRATE 54 MG TAB PO SCH (08:34)
[2024-03-16] MEDS: ENOXAPARIN 40 MG/0.4 ML SYRINGE SQ SCH (08:34)
[2024-03-16] MEDS: LINAGLIPTIN 5 MG TABLET PO SCH (08:35)
[2024-03-16] MEDS: FOLIC ACID 1 MG TAB PO SCH (08:35)
[2024-03-16] MEDS: THIAMINE 100 MG TAB PO SCH (08:35)
[2024-03-16] MEDS: MULTIVITAMINS, THERA 1 EACH TAB PO SCH (08:35)
[2024-03-16] MEDS: ASPIRIN 81 MG PO SCH (08:35)
[2024-03-16] MEDS: CHOLECALCIFEROL 25 MCG (1000 IU) TABLET PO SCH (08:35)
[2024-03-16] MEDS: LORATADINE 10 MG TAB PO SCH (08:35)
[2024-03-16] MEDS: DAPAGLIFLOZIN PROPANEDIOL 10 MG TABLET PO SCH (08:35)
[2024-03-16] MEDS: ACETAMINOPHEN TAB 325 MG TAB PO PRN (08:38)
[2024-03-16] MEDS ORDERED: metFORMIN 500 MG TAB PO SCH (09:00)
[2024-03-16] MEDS ORDERED: VALSARTAN 80 MG TAB PO SCH (09:00)
[2024-03-16 09:39] LABS: HCT 44.8 % (39.0-53.0); HGB 14.2 gm/dL (13.0-17.5); MCH 33.5 pg (25.0-35.0); MCHC 31.7 g/dL (31.0-37.0); MCV 105.4 fL (80.0-100.0); Macrocytosis Moderate; Mean Platelet Volume 7.2; Platelet Count 248 k/uL (150-450); RBC 4.25 m/uL (4.30-5.90); RDW 13.5 % (11.5-15.5); WBC 5.3 k/uL (3.8-10.6)
[2024-03-16 10:03] LABS: African American GFR (CKD) >90 (>60 ml/min/1.73 sqM); Anion Gap 6 mmol/L; Blood Urea Nitrogen 13 mg/dL (9-20); Calcium 8.3 mg/dL (8.4-10.2); Carbon Dioxide 26 mmol/L (22-30); Chloride 103 mmol/L (98-107); Glucose 169 mg/dL (74-99); Non-African American GFR(CKD) 88 (>60 ml/min/1.73 sqM); Potassium 4.2 mmol/L (3.5-5.1); Sodium 135 mmol/L (137-145)
--- NOTE | 2024-03-16 11:04 | MR ---
EXAMINATION TYPE: MR brain wo con DATE OF EXAM: 03/16/2024 10:52 AM CLINICAL INDICATION:Male, 84 years old with history of Neuro deficit, acute, stroke suspected; PHH, G ait instability, frequent falls, neuro deficit, evaluate for stroke. COMPARISON: CT 03/15/2024 TECHNIQUE: Multi planar, multi sequence imaging was performed through the brain including: T1, T2, In version recovery, Diffusion weighted imaging, and gradient echo imaging. No gadolinium was given. FINDINGS: Mild cerebral atrophy with proportional dilation of ventricular system. Scattered foci of high T2 s ignal intensity are seen within the periventricular white matter. Midline structures show no abnormal ity. Diffusion-weighted imaging shows no evidence of restricted diffusion. The susceptibility weighte d images do not reveal any evidence for micro-hemorrhage. The bone marrow signal is within normal limits. Paranasal sinuses and mastoid air cells: No significant paranasal sinus disease. Visualized orbits: Bilaterally aphakia IMPRESSION: 1. No evidence of intracranial mass or acute/subacute infarct. 2. Nonspecific white matter changes, likely secondary to small vessel ischemic disease.
[2024-03-16 11:55] LABS: Glucose,Whole Blood 143 mg/dL (70-110)
--- NOTE | 2024-03-16 12:14 | P.PN ---
Subjective Progress Note Date: 03/16/24 Patient is a 84-year-old male with a history of diabetes mellitus type 2 controlled on orals, hypertension, dyslipidemia, and COPD stage III with alcohol dependency who presented to the emergency department after falls. Patient was getting up from his chair when his left leg gave out from him and he noted it to be numb, he then fell 2 more times after this. On arrival to the ER he was noted to be tachycardic with a pulse of 102. The remainder of his vital signs were normal. Initial laboratory analysis consisted of CBC, CMP, and urinalysis which were remarkable for sodium was 133, and 4+ glucose in his urine. He underwent CT head and cervical spine which demonstrated age-related atrophic and small vessel ischemic changes without acute process, and no fracture or subluxation of the cervical spine. He underwent x-ray of his bilateral knees which showed moderate osteoarthritis but no acute pathology. He underwent x-ray of left ankle which demonstrated some swelling likely related to soft tissue injury but no evidence of fracture. He was placed in observation. Patient seen and examined at bedside. He reports that yesterday he was sitting in his chair and he woke up and went to stand. His left leg gave out from underneath him and he noted it to be numb. He was unable to get himself up EMS came and helped him to get into bed. His left leg then continued to feel weak. He got up again to go to the bathroom and fell. That time he was able to get himself back to bed using his hands and bed frame and dresser to pull himself up. He then again fell 1 more time this morning. They therefore came to the emergency department. He is noting pain in his bilateral knees, neck, and left ankle. He continues to feel weakness in his left leg. When they attempted to ambulate him in the emergency department he very unsteady on his feet and they asked for observation. Patient was referred for admission to the medicine service. Patient was seen today. Patient states that he did really well with physical therapy today. Patient states that his numbness in his feet is chronic. He states that his weakness has improved much since admission. His daughter was at bedside. Daughter is insisting that she would like him to go to a shelter facility even if it for 1 week. Per case operator daughter said that she is willing to pay [id number]. Vital signs reviewed General examination - Alert and Oriented 3 in NAD Heart - + S1S2 no murmurs Lungs - Clear to auscultation Abdomen soft NT ND +ve BS Extremities - No edema BROADCAST METEOROLOGIST - Moving all 4 extremities spontaneously Psych - Calm and cooperative Assessment/Plan: Left leg weakness Fall, without loss of consciousness Dyslipidemia -Likely due to acute on chronic debility precipitated by fall -Continue with aspirin and statin -Carotid Dopplers negative for significant stenosis -Echocardiogram is unremarkable -PT/OT -> cleared the patient to go home -Case discussed with Dr. Peraza and notified of consultation -MRI pending -Check lipid profile -A1c pending -Patient symptoms have resolved Grade 1 Left Ankle Sprain - Abel weap -Rest -Elevation -Ice Diabetes mellitus type 2 on oral medications -Metformin on hold -Continue with Tradjenta 5 mg daily and Farxiga 10 mg daily Daily ETOH us - Check CIWA scores - Thiamine 100 mg daily and folic acid 1 mg daily - no ativan due to advance age, nursing to call provider if CIWA > 10 COPD stage III - resume home brochdilator regiment Daughter is requesting for placement to a shelter facility. Per case vikki amaral daughter is willing to pay [id number] if authorization is denied by insurance. CODE STATUS: DNR DVT prophylaxis: Lovenox Objective - Vital Signs Vital signs: Vital Signs Temp 97.9 F 03/16/24 11:02 Pulse 84 03/16/24 11:02 Resp 16 03/16/24 11:02 BP 146/71 03/16/24 11:02 Pulse Ox 96 03/16/24 11:02 FiO2 Intake & Output 03/15/24 03/16/24 03/16/24 18:59 06:59 18:59 Intake Total 240 Output Total 900 Balance -660 Weight 91.172 kg Intake: Oral 240 Output: Urine 900 Other: Voiding Method Urinal Urinal - Labs CBC & Chem 7: 03/16/24 08:12 03/16/24 08:12 Labs: Abnormal Lab Results - Last 24 Hours (Table) 03/15/24 03/15/24 03/15/24 Range/Units 11:52 11:52 11:52 RBC (4.30-5.90) m/uL MCV 102.8 H (80.0-100.0) fL Lymphocytes # 0.9 L (1.0-4.8) k/uL Sodium 133 L (137-145) mmol/L Creatinine 0.64 L (0.66-1.25) mg/dL Glucose 115 H (74-99) mg/dL POC Glucose (mg/dL) (70-110) mg/dL Calcium (8.4-10.2) mg/dL Urine Glucose (UA) 4+ H (Negative) Urine Ketones 1+ H (Negative) 03/15/24 03/15/24 03/15/24 Range/Units 12:47 17:00 20:36 RBC (4.30-5.90) m/uL MCV (80.0-100.0) fL Lymphocytes # (1.0-4.8) k/uL Sodium (137-145) mmol/L Creatinine (0.66-1.25) mg/dL Glucose (74-99) mg/dL POC Glucose (mg/dL) 118 H 137 H 144 H (70-110) mg/dL Calcium (8.4-10.2) mg/dL Urine Glucose (UA) (Negative) Urine Ketones (Negative) 03/16/24 03/16/24 03/16/24 Range/Units 05:53 08:12 08:12 RBC 4.25 L (4.30-5.90) m/uL MCV 105.4 H (80.0-100.0) fL Lymphocytes # (1.0-4.8) k/uL Sodium 135 L (137-145) mmol/L Creatinine (0.66-1.25) mg/dL Glucose 169 H (74-99) mg/dL POC Glucose (mg/dL) 122 H (70-110) mg/dL Calcium 8.3 L (8.4-10.2) mg/dL Urine Glucose (UA) (Negative) Urine Ketones (Negative) 03/16/24 Range/Units 11:53 RBC (4.30-5.90) m/uL MCV (80.0-100.0) fL Lymphocytes # (1.0-4.8) k/uL Sodium (137-145) mmol/L Creatinine (0.66-1.25) mg/dL Glucose (74-99) mg/dL POC Glucose (mg/dL) 143 H (70-110) mg/dL Calcium (8.4-10.2) mg/dL Urine Glucose (UA) (Negative) Urine Ketones (Negative)
[2024-03-16 15:41] LABS: Chol/HDL Ratio 1.91 Ratio; LDL Cholesterol,Calculated 61.2 mg/dL (0.0-131.0); VLDL Calculation 16.92 mg/dL (5.00-40.00)
--- NOTE | 2024-03-16 16:35 | P.CNNES ---
History of Present Illness Consult date: 03/16/24 Requesting physician: Purvi Hough Reason for Consult: Left leg weakness History of Present Illness: Patient is a 84-year-old right-handed male with history of diabetes, hypertension, who was brought to the hospital yesterday at 9:09 AM by his son because of frequent falls. Patient states that his first fall occurred night before the last at 10 PM. He was sitting in the rocking chair, was watching TV. His legs were not touching the ground. After he was done, he turned off the lights, got up and started walking to the bathroom when he lost his equilibrium twisted his ankle and fell down. He has difficulty getting up on a regular basis as well. His legs do not have strength that he used to have to get up. He called EMS, they checked his EKG, vitals, helped him get up and placed him into the bed in the bedroom and the left. Patient went to sleep. At 3 AM he got up to go to the bathroom. He stood up, went around the foot end of the bed hanging onto the bed. He started to take steps, knee would not support and he fell. He crawled to the bathroom, urinated in the wastebasket, crawled back to the bed, climbed up the dresser into the bed. At 5 to 6 AM he again wanted to go to the bathroom and suffered from the fall again. He has to crawl to the bathroom to pass the urine. Finally he called his son who got home at around 7 AM and brought him to the hospital. Besides these falls as above, he had 1 fall about few months ago when he slipped on ice going up steps and fell on the porch. He was able to push himself up at that time. Patient has a walker, but does not use it. Patient has history of diabetes for 30 years. He does have mild diabetic neuropathy with tingling in the feet. 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 Patient has COPD, but does not use oxygen at home. Patient has history of daily drinking about 4 cans of beer, 1 shot of wine with supper, 1 wine of shot after supper and sometimes he takes a shot of bourbon [place] at night. Patient states that he did take a shot of bourbon [place] the night he fell. He does take aspirin 81 mg daily for last 15 years.. Vital signs on arrival blood pressure 126/74 pulse rate 102, temperature 98.3. Orthostatics revealed supine blood pressure 145/76 with pulse of 91. Sitting blood pressure 125/74 and pulse of 93 and standing was 131/84 with pulse of 109. Patient has mildly positive orthostatics. Blood test shows normal CBC with elevated MCV 102.8. Sodium 133 potassium 4.4, renal functions, hepatic panel is normal. UA negative. Hemoglobin A1c 6.6. CT scan of the head showed no acute process. CT of the cervical spine showed no evidence for acute fracture or subluxation of the cervical spine. Knee x-ray showed no acute osseous pathology. Moderate tricompartmental osteoarthritic changes bilaterally. Ankle x-ray showed no fracture. Subcutaneous swelling around the ankle likely secondary to underlying soft tissue injury. Review of Systems Constitutional: Denies chills, Denies fever Eyes: denies blurred vision, denies decreased vision, denies pain, denies loss of vision Ears: bilateral: decreased hearing, deny: ear discharge Ears, nose, mouth and throat: Denies headache, Denies sore throat, Denies vertigo Cardiovascular: Reports shortness of breath, Denies chest pain, Denies lightheadedness Respiratory: Denies cough, Denies excessive sputum Gastrointestinal: Denies abdominal pain, Denies diarrhea, Denies nausea, Denies vomiting Genitourinary: Denies incontinence, Denies urinary frequency Musculoskeletal: Reports neck pain, Denies low back pain Integumentary: Denies pruritus, Denies rash Neurological: Reports as per HPI Psychiatric: Denies anxiety, Denies depression Hematologic/Lymphatic: Reports easy bruising, Denies easy bleeding Past Medical History Past Medical History: COPD, Diabetes Mellitus, Hyperlipidemia, Hypertension History of Any Multi-Drug Resistant Organisms: None Reported Past Surgical History: No Surgical Hx Reported Additional Past Surgical History / Comment(s): lower right lobe of lung removed Past Anesthesia/Blood Transfusion Reactions: No Reported Reaction Smoking Status: Former smoker Medications and Allergies Home Medications Medication Instructions Recorded Confirmed Type Aspirin 81 mg PO DAILY 06/22/21 03/15/24 History Atorvastatin [Lipitor] 80 mg PO HS 06/22/21 03/15/24 History Fenofibrate Nanocrystallized 48 mg PO DAILY 06/22/21 03/15/24 History [Tricor] Multivitamins, Thera [Multivitamin 1 tab PO DAILY 06/22/21 03/15/24 History (formulary)] Valsartan 80 mg PO DAILY 06/22/21 03/15/24 History Albuterol Inhaler [Ventolin Hfa 2 puff INHALATION RT-Q6H PRN 03/15/24 03/15/24 History Inhaler] Cholecalciferol [Vitamin D3 (25 50 mcg PO DAILY 03/15/24 03/15/24 History Mcg = 1000 Iu)] Cinnamon Bark [Cinnamon] 2,000 mg PO DAILY 03/15/24 03/15/24 History Empagliflozin/Linagliptin 1 tab PO DAILY 03/15/24 03/15/24 History [Glyxambi 25 mg-5 mg Tablet] Fexofenadine HCl [Henny Allergy] 180 mg PO DAILY 03/15/24 03/15/24 History Fluticasone/Umeclidin/Vilanter 1 puff INHALATION DIRECTED 03/15/24 03/15/24 History [Trelegy Ellipta 100-62.5-25] Fluticasone/Umeclidin/Vilanter 1 puff INHALATION RT-HS 03/15/24 03/15/24 History [Trelegy Ellipta 200-62.5-25] Bureau-3/Dha/Epa/Fish Oil [Fish Oil 2 cap PO DAILY 03/15/24 03/15/24 History 1,000 mg Softgel] metFORMIN HCL ER [Glucophage XR] 500 mg PO DAILY 03/15/24 03/15/24 History Allergies Allergy/AdvReac Type Severity Reaction Status Date / Time Sulfa (Sulfonamide AdvReac Rash/Hives Verified 03/15/24 13:17 Antibiotics) Physical Examination - Vital Signs Vital Signs: Vital Signs Temp Pulse Pulse Pulse Resp BP BP 03/16/24 11:02 97.9 F 84 03/16/24 08:32 97.7 F 76 03/16/24 02:00 98 F 84 03/15/24 20:00 98.4 F 86 03/15/24 18:26 98 F 88 03/15/24 17:16 98.1 F 03/15/24 16:55 93 109 H 91 125/74 131/84 BP Pulse Ox 03/16/24 11:02 146/71 96 03/16/24 08:32 121/68 96 03/16/24 02:00 142/71 96 03/15/24 20:00 138/86 95 03/15/24 18:26 153/83 95 03/15/24 17:16 97 03/15/24 16:55 145/76 Intake and Output 03/16/24 03/16/24 03/16/24 06:59 14:59 22:59 Intake Total 240 Output Total 400 Balance -400 240 Intake: Oral 240 Output: Urine 400 Other: Voiding Method Urinal Patient is an elderly male, very pleasant, in no acute distress. Patient is alert awake oriented to time place and person. Speech and language functions are normal. Patient can name and repeat very well. No aphasia or dysarthria. Attention, concentration and fund of knowledge is adequate. On cranial nerve examination, pupils are small, about 3 mm, equal, difficult to assess for reactivity. His visual lewis are full on confrontation, with no neglect on double simultaneous stimulation. Extraocular muscles are intact with no nystagmus. Face is symmetric, tongue protrudes to the midline. Palatal elevation and sensation normal, hearing is slightly decreased and shoulder shrug normal, facial sensation normal. On muscle strength testing, there is no pronator drift and the strength is normal in arms and legs distally and proximally, except hip flexion which may be 5-bilaterally. Ankle dorsiflexion, toe extension are normal bilaterally. Deep tendon reflexes are almost absent in the arms and legs and plantars are downgoing. Sensory to touch is equal with no neglect on double simultaneous stimulation. Cerebellar function showed no ataxia for [id number] testing. No dysdiadochokinesia. No ataxia for [id number] testing on either side. Tone and bulk of muscles normal. Gait deferred.. On general examination, there is no carotid bruit or murmur, S1-S2 audible. Chest is clear on consultation. Abdomen is soft nontender. No organomegaly, bowel sounds present. Peripheral pulses are present. No peripheral edema. Results - Laboratory Findings CBC and BMP: 03/16/24 08:12 03/16/24 08:12 Abnormal Lab Findings: Abnormal Labs 03/15/24 03/15/24 03/15/24 11:52 11:52 11:52 RBC MCV 102.8 H Lymphocytes # 0.9 L Sodium 133 L Creatinine 0.64 L Glucose 115 H POC Glucose (mg/dL) Hemoglobin A1c Calcium Urine Glucose (UA) 4+ H Urine Ketones 1+ H 03/15/24 03/15/24 03/15/24 12:47 17:00 20:36 RBC MCV Lymphocytes # Sodium Creatinine Glucose POC Glucose (mg/dL) 118 H 137 H 144 H Hemoglobin A1c Calcium Urine Glucose (UA) Urine Ketones 03/16/24 03/16/24 03/16/24 05:53 08:12 08:12 RBC MCV Lymphocytes # Sodium 135 L Creatinine Glucose 169 H POC Glucose (mg/dL) 122 H Hemoglobin A1c 6.6 H Calcium 8.3 L Urine Glucose (UA) Urine Ketones 03/16/24 03/16/24 08:12 11:53 RBC 4.25 L MCV 105.4 H Lymphocytes # Sodium Creatinine Glucose POC Glucose (mg/dL) 143 H Hemoglobin A1c Calcium Urine Glucose (UA) Urine Ketones Assessment and Plan Assessment: * Status post fall x 3 in 24 hours, likely multifactorial. Patient does have history of alcoholism, and drank an extra shot of [place] that night. Patient also was walking after turning off the light and was dark and lost balance and fell, injuring his knee. Subsequent falls may be related to above as well. CVA ruled out. No structural abnormality in the brain MRI. * Diabetes, well-controlled * Diabetic peripheral neuropathy, mild degree * History of alcoholism * Macrocytosis, likely due to alcoholism. * Hypertension * Hyperlipidemia * Arthritis * COPD Plan: * Patient had undergone extensive workup performed as below. All workup is negative. * MRI of the brain revealed no evidence of intracranial mass or acute/subacute infarct. Nonspecific white matter changes, likely secondary to small vessel ischemic disease. I personally reviewed MRI, agree with the findings. * Carotid Doppler revealed no hemodynamically significant stenosis. Antegrade flow in both vertebral arteries. * 2D echo revealed technically difficult study. Normal left trickle size and systolic function with a EF 55 to 60%. No obvious regional wall motion abnormalities. Left atrium not well-visualized. * Hemoglobin A1c 6.6. Diabetes well-controlled. * Vitamin B12 518, normal. Vitamin D 82. * Continue aspirin 81 mg daily, Lipitor 80 mg and fish oil. * PT, OT evaluate gait. * Patient recommended to use walker on a daily basis to prevent further falls. * Patient strongly counseled about abstinence from alcohol. * No other neurological workup indicated. Neurologically clear for transfer to rehab. Thank you for the consult. Time with Patient: Greater than 30
[2024-03-16 17:03] LABS: Glucose,Whole Blood 341 mg/dL (70-110)
[2024-03-16 17:04] LABS: Glucose,Whole Blood 250 mg/dL (70-110)
[2024-03-16 17:12] LABS: Glucose,Whole Blood 183 mg/dL (70-110)
[2024-03-16 21:07] LABS: Glucose,Whole Blood 216 mg/dL (70-110)
[2024-03-17 06:24] LABS: Glucose,Whole Blood 149 mg/dL (70-110)
[2024-03-17 11:58] LABS: Glucose,Whole Blood 202 mg/dL (70-110)
--- NOTE | 2024-03-17 12:36 | P.PN ---
Subjective Progress Note Date: 03/17/24 Patient is a 84-year-old male with a history of diabetes mellitus type 2 controlled on orals, hypertension, dyslipidemia, and COPD stage III with alcohol dependency who presented to the emergency department after falls. Patient was getting up from his chair when his left leg gave out from him and he noted it to be numb, he then fell 2 more times after this. On arrival to the ER he was noted to be tachycardic with a pulse of 102. The remainder of his vital signs were normal. Initial laboratory analysis consisted of CBC, CMP, and urinalysis which were remarkable for sodium was 133, and 4+ glucose in his urine. He underwent CT head and cervical spine which demonstrated age-related atrophic and small vessel ischemic changes without acute process, and no fracture or subluxation of the cervical spine. He underwent x-ray of his bilateral knees which showed moderate osteoarthritis but no acute pathology. He underwent x-ray of left ankle which demonstrated some swelling likely related to soft tissue injury but no evidence of fracture. He was placed in observation. Patient seen and examined at bedside. He reports that yesterday he was sitting in his chair and he woke up and went to stand. His left leg gave out from underneath him and he noted it to be numb. He was unable to get himself up EMS came and helped him to get into bed. His left leg then continued to feel weak. He got up again to go to the bathroom and fell. That time he was able to get himself back to bed using his hands and bed frame and dresser to pull himself up. He then again fell 1 more time this morning. They therefore came to the emergency department. He is noting pain in his bilateral knees, neck, and left ankle. He continues to feel weakness in his left leg. When they attempted to ambulate him in the emergency department he very unsteady on his feet and they asked for observation. Patient was referred for admission to the medicine service. Patient seen today. He is denying any acute complaints. Vital signs reviewed General examination - Alert and Oriented 3 in NAD Heart - + S1S2 no murmurs Lungs - Clear to auscultation Abdomen soft NT ND +ve BS Extremities - No edema CLINICAL DATA MANAGEMENT DIRECTOR - Moving all 4 extremities spontaneously Psych - Calm and cooperative Assessment/Plan: Left leg weakness Fall, without loss of consciousness Dyslipidemia -Likely due to acute on chronic debility precipitated by fall and chronic alcohol use -Continue with aspirin and statin -Carotid Dopplers negative for significant stenosis -Echocardiogram is unremarkable -MRI negative for acute stroke -Patient cleared for discharge by neurology -PT/OT -> cleared the patient to go home -LDL is 61. Dyslipidemia is well-controlled. Resume atorvastatin 80 mg daily -Hemoglobin A1c is 6.6. Diabetes is well-controlled -Patient symptoms have resolved -Daughter is requesting for the patient to go to rehab. clinical trial data manager accepted for prior authorization. If denied then patient will go live with his son with home care and home physical therapy -Patient counseled on alcohol cessation Grade 1 Left Ankle Sprain - Abel weap -Rest -Elevation -Ice -[facility] [place] 5 every 6 hours as needed for pain Diabetes mellitus type 2 on oral medications -Metformin on hold -Continue with Tradjenta 5 mg daily and Farxiga 10 mg daily Daily ETOH us - Check CIWA scores - Thiamine 100 mg daily and folic acid 1 mg daily - no ativan due to advance age, nursing to call provider if CIWA > 10 -No signs of withdrawal while in the hospital COPD stage III - resume home brochdilator regiment CODE STATUS: DNR DVT prophylaxis: Lovenox Patient medically stable for discharge. Awaiting to hear back from prior authorization. Objective - Vital Signs Vital signs: Vital Signs Temp 97.6 F 03/17/24 12:27 Pulse 92 03/17/24 12:27 Resp 18 03/17/24 12:27 BP 156/81 03/17/24 12:27 Pulse Ox 99 03/17/24 12:27 FiO2 Intake & Output 03/16/24 03/17/24 03/17/24 18:59 06:59 18:59 Intake Total 240 368 Balance 240 368 Intake: IV 10 Invasive Line 1 10 Oral 240 358 Other: Voiding Method Urinal Toilet Urinal # Voids 3 2 - Labs CBC & Chem 7: 03/16/24 08:12 03/16/24 08:12 Labs: Abnormal Lab Results - Last 24 Hours (Table) 03/16/24 03/16/24 03/16/24 Range/Units 08:12 08:12 17:02 POC Glucose (mg/dL) 341 H (70-110) mg/dL Hemoglobin A1c 6.6 H (<=6.0) % HDL Cholesterol 85.90 H (40.00-60.00) mg/dL 03/16/24 03/16/24 03/16/24 Range/Units 17:03 17:10 21:05 POC Glucose (mg/dL) 250 H 183 H 216 H (70-110) mg/dL Hemoglobin A1c (<=6.0) % HDL Cholesterol (40.00-60.00) mg/dL 03/17/24 03/17/24 Range/Units 06:22 11:56 POC Glucose (mg/dL) 149 H 202 H (70-110) mg/dL Hemoglobin A1c (<=6.0) % HDL Cholesterol (40.00-60.00) mg/dL
[2024-03-17] MEDS: polyethylene glycoL 3350 17 GM POWD.PACK PO PRN (13:21)
[2024-03-17 16:52] LABS: Glucose,Whole Blood 155 mg/dL (70-110)
[2024-03-17] MEDS: CYCLOBENZAPRINE 5 MG TAB PO PRN (17:25)
[2024-03-17 20:23] LABS: Glucose,Whole Blood 137 mg/dL (70-110)
[2024-03-18 06:32] LABS: Glucose,Whole Blood 138 mg/dL (70-110)
--- NOTE | 2024-03-18 10:08 | P.PN ---
Subjective Progress Note Date: 03/18/24 Patient is a 84-year-old male with a history of diabetes mellitus type 2 controlled on orals, hypertension, dyslipidemia, and COPD stage III with alcohol dependency who presented to the emergency department after falls. Patient was getting up from his chair when his left leg gave out from him and he noted it to be numb, he then fell 2 more times after this. On arrival to the ER he was noted to be tachycardic with a pulse of 102. The remainder of his vital signs were normal. Initial laboratory analysis consisted of CBC, CMP, and urinalysis which were remarkable for sodium was 133, and 4+ glucose in his urine. He underwent CT head and cervical spine which demonstrated age-related atrophic and small vessel ischemic changes without acute process, and no fracture or subluxation of the cervical spine. He underwent x-ray of his bilateral knees which showed moderate osteoarthritis but no acute pathology. He underwent x-ray of left ankle which demonstrated some swelling likely related to soft tissue injury but no evidence of fracture. He was placed in observation. Patient seen and examined at bedside. He reports that yesterday he was sitting in his chair and he woke up and went to stand. His left leg gave out from underneath him and he noted it to be numb. He was unable to get himself up EMS came and helped him to get into bed. His left leg then continued to feel weak. He got up again to go to the bathroom and fell. That time he was able to get himself back to bed using his hands and bed frame and dresser to pull himself up. He then again fell 1 more time this morning. They therefore came to the emergency department. He is noting pain in his bilateral knees, neck, and left ankle. He continues to feel weakness in his left leg. When they attempted to ambulate him in the emergency department he very unsteady on his feet and they asked for observation. Patient was referred for admission to the medicine service. Patient seen today. He is denying any acute complaints. Vital signs reviewed General examination - Alert and Oriented 3 in NAD Heart - + S1S2 no murmurs Lungs - Clear to auscultation Abdomen soft NT ND +ve BS Extremities - No edema WORK STATION SUPPORT SPECIALIST - Moving all 4 extremities spontaneously Psych - Calm and cooperative Assessment/Plan: Left leg weakness Fall, without loss of consciousness Dyslipidemia -Likely due to acute on chronic debility precipitated by fall and chronic alcohol use -Continue with aspirin and statin -Carotid Dopplers negative for significant stenosis -Echocardiogram is unremarkable -MRI negative for acute stroke -Patient cleared for discharge by neurology -PT/OT -> cleared the patient to go home -LDL is 61. Dyslipidemia is well-controlled. Resume atorvastatin 80 mg daily -Hemoglobin A1c is 6.6. Diabetes is well-controlled -Patient symptoms have resolved -Daughter is requesting for the patient to go to rehab. manager social responsibility accepted for prior authorization. If denied then patient will go live with his son with home care and home physical therapy -Patient counseled on alcohol cessation Neck stiffness Patient started on Flexeril which is helping Grade 1 Left Ankle Sprain - Abel weap -Rest -Elevation -Ice -[place] 5 every 6 hours as needed for pain Diabetes mellitus type 2 on oral medications -Metformin on hold -Continue with Tradjenta 5 mg daily and Farxiga 10 mg daily Daily ETOH use - Check CIWA scores - Thiamine 100 mg daily and folic acid 1 mg daily - no ativan due to advance age, nursing to call provider if CIWA > 10 -No signs of withdrawal while in the hospital COPD stage III - resume home brochdilator regiment CODE STATUS: DNR DVT prophylaxis: Lovenox Patient medically stable for discharge. Awaiting to hear back from CM regarding prior authorization. Objective - Vital Signs Vital signs: Vital Signs Temp 98.3 F 03/18/24 09:44 Pulse 79 03/18/24 09:44 Resp 18 03/18/24 09:44 BP 147/61 03/18/24 09:44 Pulse Ox 97 03/18/24 09:44 FiO2 Intake & Output 03/17/24 03/18/24 03/18/24 18:59 06:59 18:59 Intake Total 1084 190 Balance 1084 190 Intake: IV 10 10 Invasive Line 1 10 10 Oral 1074 180 Other: Voiding Method Toilet Toilet Urinal Urinal # Voids 2 1 - Labs CBC & Chem 7: 03/16/24 08:12 03/16/24 08:12 Labs: Abnormal Lab Results - Last 24 Hours (Table) 03/17/24 03/17/24 03/17/24 Range/Units 11:56 16:50 20:22 POC Glucose (mg/dL) 202 H 155 H 137 H (70-110) mg/dL 03/18/24 Range/Units 06:31 POC Glucose (mg/dL) 138 H (70-110) mg/dL
[2024-03-18 11:16] LABS: Glucose,Whole Blood 147 mg/dL (70-110)
[2024-03-18 16:18] LABS: Glucose,Whole Blood 156 mg/dL (70-110)
[2024-03-18 20:23] LABS: Glucose,Whole Blood 158 mg/dL (70-110)
[2024-03-19 06:19] LABS: Glucose,Whole Blood 131 mg/dL (70-110)
[2024-03-19 06:21] VITALS: RESP 18
[2024-03-19 10:37] LABS: HCT 42.8 % (39.0-53.0); HGB 13.8 gm/dL (13.0-17.5); MCH 34.1 pg (25.0-35.0); MCHC 32.2 g/dL (31.0-37.0); MCV 105.9 fL (80.0-100.0); Macrocytosis Moderate; Mean Platelet Volume 7.2; Platelet Count 270 k/uL (150-450); RBC 4.04 m/uL (4.30-5.90); RDW 13.2 % (11.5-15.5); WBC 4.6 k/uL (3.8-10.6)
[2024-03-19 10:54] LABS: ALT 23 U/L (4-49); AST 30 U/L (17-59); African American GFR (CKD) >90 (>60 ml/min/1.73 sqM); Albumin 3.5 g/dL (3.5-5.0); Alkaline Phosphatase 69 U/L (38-126); Anion Gap 4 mmol/L; Blood Urea Nitrogen 14 mg/dL (9-20); Calcium 8.6 mg/dL (8.4-10.2); Carbon Dioxide 29 mmol/L (22-30); Chloride 101 mmol/L (98-107); Glucose 202 mg/dL (74-99); Non-African American GFR(CKD) 86 (>60 ml/min/1.73 sqM); Sodium 134 mmol/L (137-145); Total Bilirubin 1.1 mg/dL (0.2-1.3); Total Protein 6.3 g/dL (6.3-8.2)
[2024-03-19 11:22] LABS: Glucose,Whole Blood 182 mg/dL (70-110)
[2024-03-19] MEDS: LACTULOSE 20 GM/30 ML CUP PO ONE (11:43)
[2024-03-19 12:21] VITALS: BP 125/86; PULSE 78; TEMP 97.6
--- NOTE | 2024-03-19 13:28 | P.PN ---
Subjective Progress Note Date: 03/19/24 Hospital course: Patient is a pleasant 84-year-old male past medical history of type II daw-hmeqiub-tsalowswz diabetes mellitus, diabetic peripheral neuropathy, hypertension, hyperlipidemia, COPD, and alcohol dependency. He presented to the emergency department on 03/15/2024 after experiencing recurrent falls at home. Upon arrival to our hospital, patient underwent evaluation in the emergency department. Vital signs upon arrival show blood pressure 126/74, heart rate 102, respiratory rate 20, temp 98.3 F, and SpO2 of 99% on room air. CT head and cervical spine were completed. CT head showing age-related atrophic and chronic small vessel ischemic changes but negative for acute intracranial process. CT cervical spine showing no evidence for fracture or subluxation of the cervical spine. X-ray of bilateral knees completed negative for acute osseous pathology showing moderate tricompartmental osteoarthritic changes bilaterally. X-ray left ankle negative for acute fracture or dislocation showing subcutaneous swelling around the ankle likely secondary to underlying s oft tissue injury. Labs were completed and reviewed. CBC pending macrocytosis with MCV of 102.8 otherwise normal findings. BMP showing hyponatremia with sodium of 133 and glucose of 115. Liver profile unremarkable. Urinalysis positive for glucose and ketones but negative for infection. Patient was admitted under our services at this time rotation to neurology. Echocardiogram was completed showing preserved EF of 55 to 60% with no significant valvular or structural abnormalities reported. Carotid Dopplers completed showing no hemodynamically significant stenosis. Right brain was completed without contrast showing no evidence of intracranial mass or acute/subacute infarct showing nonspecific white matter changes likely secondary to small vessel ischemic disease. Neurology evaluated recommend patient continue aspirin 81 mg daily and Lipitor 80 mg daily with no further neurological workup indicated. Was evaluated by PT/OT he is requiring ambulation with walker at all times, woul d benefit from placement in subacute rehab. Patient is medically stable and currently awaiting pending insurance authorization for subacute rehab. Physical exam: Vital signs reviewed and stable. General: Nontoxic, no distress and appears stated age. Derm: Skin warm and dry, normal coloration for ethnicity. Head: Atraumatic, normocephalic and symmetric. Eyes: EOMs intact, no lid lag, and anicteric sclera Mouth: no lip lesions, mucus membranes moist Cardiovascular: regular rate and rhythm with normal S1S2, no murmur, positive posterior tibial pulses bilaterally, and cap refill < 2 seconds. Lungs: Respirations even, regular, and unlabored on room air. Lungs CTA bilaterally, no rhonchi, no rales, no wheezing, and no accessory muscle usage. Abdominal: soft, nontender to palpation, no guarding, no appreciable organomegaly Ext: ROM intact. No gross muscle atrophy, no edema, no contractures Neuro: Speech clear, face symmetrical and CN II-XII grossly intact with no noted focal neuro deficits Psych: Alert and oriented to person, place, time, and situation. Appropriate and pleasant affect. Assessment and Plan of Care: Recurrent falls at home History of alcoholism with daily alcohol dependence Macrocytosis, likely secondary to alcohol abuse -Likely due to acute on chronic debility precipitated by fall and chronic alcohol use -Continue with aspirin and statin -Carotid Dopplers negative for significant stenosis -Echocardiogram is unremarkable -MRI negative for acute stroke -Patient cleared for discharge by neurology -PT/OT -> cleared the patient to go home -LDL is 61. Dyslipidemia is well-controlled. Resume atorvastatin 80 mg daily -Patient symptoms have resolved -Daughter is requesting for the patient to go to rehab. junior project manager accepted f or prior authorization. If denied then patient will go live with his son with home care and home physical therapy -Patient counseled on alcohol cessation Type II vcg-hnawhmb-kbhmyatan diabetes mellitus Diabetic peripheral neuropathy -Hemoglobin A1c is 6.6%. Diabetes is well-controlled -Continue with Tradjenta 5 mg daily and Farxiga 10 mg daily. Hypertension Hyperlipidemia -Valsartan was discontinued and patient was started on Farxiga 10 mg daily. Patient will also continue atorvastatin 80 mg nightly and fenofibrate 54 mg daily. Neck stiffness -Patient started on Flexeril which is helping Grade 1 Left Ankle Sprain -Abel wrap -Rest, ice, and elevation. -Symptomatic care and pain management with [place] 5 every 6 hours as needed for pain Daily ETOH use - Check CIWA scores - Thiamine 100 mg daily and folic acid 1 mg daily - no ativan due to advance age, nursing to call provider if CIWA > 10 -No signs of withdrawal while in the hospital COPD stage III -Continue Symbicort and resume home brochdilator regiment. Data and imaging reviewed: Morning labs reviewed. CBC showing macrocytosis with MCV of 105.9 otherwise normal findings. BMP showing hyponatremia with sodium of 134 blood glucose of 131. Her profile unremarkable. Magnesium normal findings at 2.0. Vital signs reviewed and stable. Blood pressure 122/73, heart rate 80, respiratory rate 18, temp 97.5 F, and SpO2 of 96% on room air. CODE STATUS: DNR/DNI DVT prophylaxis: Lovenox Anticipated discharge date: Patient medically optimized for discharge, awaiting insurance authorization for rehab Anticipated discharge place: SNF versus home with home care, pending insurance authorization Patient was seen independently by Nurse Pracitioner. This document was prepared using [employer] dictation software. Please allow for errors in printer slotter operator, while rare they do occur. Nasir Walters NP rendered care for this patient independently, reviewed the findings and plan as documented in the note above. I did not physically speak with or examine the patient on this date. Objective - Vital Signs Vital signs: Vital Signs Temp 98.1 F 03/18/24 20:00 Pulse 77 03/19/24 04:00 Resp 18 03/19/24 04:00 BP 134/82 03/19/24 04:00 Pulse Ox 97 03/19/24 04:00 FiO2 Intake & Output 03/18/24 03/19/24 03/19/24 18:59 06:59 18:59 Intake Total 550 Balance 550 Intake: IV 10 Invasive Line 1 10 Oral 540 Other: Voiding Method Toilet Toilet Urinal Urinal # Voids 1 1 - Labs CBC & Chem 7: 03/19/24 10:13 03/19/24 10:13 Labs: Abnormal Lab Results - Last 24 Hours (Table) 03/18/24 03/18/24 03/18/24 Range/Units 11:13 16:17 20:22 POC Glucose (mg/dL) 147 H 156 H 158 H (70-110) mg/dL 03/19/24 Range/Units 06:18 POC Glucose (mg/dL) 131 H (70-110) mg/dL
--- NOTE | 2024-03-19 13:47 | P.DS ---
Providers Date of admission: 03/15/24 12:55 Expected date of discharge: 03/19/24 Attending physician: Purvi Hough DO Consults: 03/15/24 16:36 Consult Physician Routine Consulting Provider: Michael Peraza Consult Reason/Comments: Left leg weakness Do you want consulting provider notified?: Yes Primary care physician: Nazario Morin Hospital Course: Discharge Diagnosis: Recurrent falls at home. History of alcoholism with daily alcohol dependence Macrocytosis, likely secondary to alcohol abuse. Continue folic acid 1 mg daily and thiamine 100 mg daily. Recommend cessation of alcohol use.. Type II hzd-iruqwza-dgvupjsmm diabetes mellitus. Hemoglobin A1c is 6.6%. Continue Glucophage 500 mg daily and Glyxambi 25-5 mg daily. Diabetic peripheral neuropathy Hypertension. Continue valsartan 80 mg daily. Hyperlipidemia. Continue atorvastatin 80 mg nightly and fenofibrate 48 mg daily . Neck stiffness. Patient started on Flexeril 5 mg twice daily resulting in improvement. Grade 1 Left Ankle Sprain Abel wrap and continue Rest, ice, and elevation. Recommend outpatient follow-up with orthopedic podiatrist in 1 week. Daily ETOH use. No signs of withdraw during hospitalization, advised cessation of alcohol use. COPD stage III. Continue Symbicort and resume home brochdilator regiment. Hospital Course: Patient is a pleasant 84-year-old male past medical history of type II qbd-vdnjuah-kfkifzbmj diabetes mellitus, diabetic peripheral neuropathy, hypertension, hyperlipidemia, COPD, and alcohol dependency. He presented to the emergency department on 03/15/2024 after experiencing recurrent falls at home. Upon arrival to our hospital, patient underwent evaluation in the emergency department. Vital signs upon arrival show blood pressure 126/74, heart rate 102, respiratory rate 20, temp 98.3 F, and SpO2 of 99% on room air. CT head and cervical spine were completed. CT head showing age-related atrophic and chronic small vessel ischemic changes but negative for acute intracranial process. CT cervical spine showing no evidence for fracture or subluxation of the cervical spine. X-ray of bilateral knees completed negative for acute osseous pathology showing moderate tricompartmental osteoarthritic changes bilaterally. X-ray left ankle negative for acute fracture or dislocation showing subcutaneous swelling around the ankle likely secondary to underlying soft tissue injury. Labs were completed and reviewed. CBC pending macrocytosis with MCV of 102.8 otherwise normal findings. BMP showing hyponatremia with sodium of 133 and glucose of 115. Liver profile unremarkable. Urinalysis positive for glucose and ketones but negative for infection. Patient was admitted under our services at this time rotation to neurology. Echocardiogram was completed showing preserved EF of 55 to 60% with no significant valvular or structural abnormalities reported. Carotid Dopplers completed showing no hemodynamically significant stenosis. Right brain was completed without contrast showing no evidence of intracranial mass or acute/subacute infarct showing nonspecific white matter changes likely secondary to small vessel ischemic disease. Neurology evaluated recommend patient continue aspirin 81 mg daily and Lipitor 80 mg daily with no further neurological workup indicated. Was evaluated by PT/OT he is requiring ambulation with walker at all times, would benefit from placement in subacute rehab. Patient is medically stable and currently awaiting insurance authorization for subacute rehab. Per child welfare caseworker, insurance authorization not obtained. Arrangements were made for dis charge home with his son and home care was set up. Patient to follow-up outpatient with PCP in 1 to 2 days and recommend outpatient follow-up with orthopedic podiatrist in 1 to 2 weeks. Physical exam: Vital signs reviewed and stable. General: Nontoxic, no distress and appears stated age. Derm: Skin warm and dry, normal coloration for ethnicity. Head: Atraumatic, normocephalic and symmetric. Eyes: EOMs intact, no lid lag, and anicteric sclera Mouth: no lip lesions, mucus membranes moist Cardiovascular: regular rate and rhythm with normal S1S2, no murmur, positive posterior tibial pulses bilaterally, and cap refill < 2 seconds. Lungs: Respirations even, regular, and unlabored on room air. Lungs CTA bilaterally, no rhonchi, no rales, no wheezing, and no accessory muscle usage. Abdominal: soft, nontender to palpation, no guarding, no appreciable organomegaly Ext: ROM intact. No gross muscle atrophy, no edema, no contractures Neuro: Speech clear, face symmetrical and CN II-XII grossly intact with no noted focal neuro deficits Psych: Alert and oriented to person, place, time, and situation. Appropriate and pleasant affect. A total of 33 minutes of time were spent preparing this complex discharge summary. Pt was discharged on 03/19/2024 at 1:36 PM. Patient was seen independently by Nurse Practitioner. This document was prepared using [employer] dictation software. Please allow for errors in support dba while rare they do occur. Nasir Walters NP rendered care for this patient independently, reviewed the findings and plan as documented in the note above. I did not physically speak with or examine the patient on this date. Patient Condition at Discharge: Stable Plan - Discharge Summary New Discharge Prescriptions: New Cyclobenzaprine [Flexeril] 5 mg PO BID PRN #30 tab PRN Reason: Muscle Spasm polyethylene glycoL 3350 [Miralax] 17 gm PO BID 30 Days #60 packet Thiamine [Vitamin B-1] 100 mg PO DAILY #30 tab Folic Acid 1 mg PO DAILY #30 tab Continue metFORMIN HCL ER [Glucophage XR] 500 mg PO DAILY Fluticasone/Umeclidin/Vilanter [Trelegy Ellipta 200-62.5-25] 1 puff INHALATION RT-HS Empagliflozin/Linagliptin [Glyxambi 25 mg-5 mg Tablet] 1 tab PO DAILY Fexofenadine HCl [Henny Allergy] 180 mg PO DAILY Palmetto-3/Dha/Epa/Fish Oil [Fish Oil 1,000 mg Softgel] 2 cap PO DAILY Multivitamins, Thera [Multivitamin (formulary)] 1 tab PO DAILY Atorvastatin [Lipitor] 80 mg PO HS Valsartan 80 mg PO DAILY Fenofibrate Nanocrystallized [Tricor] 48 mg PO DAILY Aspirin 81 mg PO DAILY Albuterol Inhaler [Ventolin Hfa Inhaler] 2 puff INHALATION RT-Q6H PRN PRN Reason: Shortness Of Breath Fluticasone/Umeclidin/Vilanter [Trelegy Ellipta 100-62.5-25] 1 puff INHALATION DIRECTED Cinnamon Bark [Cinnamon] 2,000 mg PO DAILY Cholecalciferol [Vitamin D3 (25 Mcg = 1000 Iu)] 50 mcg PO DAILY Discharge Medication List Aspirin 81 mg PO DAILY 06/22/21 [History] Atorvastatin [Lipitor] 80 mg PO HS 06/22/21 [History] Fenofibrate Nanocrystallized [Tricor] 48 mg PO DAILY 06/22/21 [History] Multivitamins, Thera [Multivitamin (formulary)] 1 tab PO DAILY 06/22/21 [History] Valsartan 80 mg PO DAILY 06/22/21 [History] Albuterol Inhaler [Ventolin Hfa Inhaler] 2 puff INHALATION RT-Q6H PRN 03/15/24 [History] Cholecalciferol [Vitamin D3 (25 Mcg = 1000 Iu)] 50 mcg PO DAILY 03/15/24 [History] Cinnamon Bark [Cinnamon] 2,000 mg PO DAILY 03/15/24 [History] Empagliflozin/Linagliptin [Glyxambi 25 mg-5 mg Tablet] 1 tab PO DAILY 03/15/24 [History] Fexofenadine HCl [Henny Allergy] 180 mg PO DAILY 03/15/24 [History] Fluticasone/Umeclidin/Vilanter [Trelegy Ellipta 100-62.5-25] 1 puff INHALATION DIRECTED 03/15/24 [History] Fluticasone/Umeclidin/Vilanter [Trelegy Ellipta 200-62.5-25] 1 puff INHALATION RT-HS 03/15/24 [History] [place]-3/Dha/Epa/Fish Oil [Fish Oil 1,000 mg Softgel] 2 cap PO DAILY 03/15/24 [History] metFORMIN HCL ER [Glucophage XR] 500 mg PO DAILY 03/15/24 [History] Cyclobenzaprine [Flexeril] 5 mg PO BID PRN #30 tab 03/19/24 [Rx] Folic Acid 1 mg PO DAILY #30 tab 03/19/24 [Rx] Thiamine [Vitamin B-1] 100 mg PO DAILY #30 tab 03/19/24 [Rx] polyethylene glycoL 3350 [Miralax] 17 gm PO BID 30 Days #60 packet 03/19/24 [Rx] Follow up Appointment(s)/Referral(s): Nazario Morin MD [Primary Care Provider] - 1-2 days (Call and make riaz!) Duane Mccall MD [Medical Doctor] - 1 Week (Call and make riaz! (Orthopedic (bone) doctor)) Patient Instructions/Handouts: Ankle Sprain (DC), At-Risk Alcohol Use (DC) Activity/Diet/Wound Care/Special Instructions: Activity: As tolerated, ambulate with walker at all times. Take breaks as needed. Diet: Heart healthy and carb consistent diet. Avoid salts, or foods with hidden salts such as canned or boxed foods and frozen dinners. Extra salt makes your heart work harder and traps the fluid in your body for longer. Special Instructions: Take all of your medications as directed and remember to keep all of your doctor's appointments and follow-up as needed. Thank you for allowing us to participate in your care, it was truly a pleasure having you for our patient!!! Discharge/Stand Alone Forms: Who Do I Call?, Help In The Home Discharge Disposition: HOME WITH HOME HEALTH SERVICES
== END 2024-03-19 14:17 | disposition home health service (06) ==
LOC: EC 09:09 → 6NMEDSUR 12:55 → 3SCARD 16:39
PROVIDERS: ADMIT Internal Medicine; ATTEND Internal Medicine
DX: R53.1 Weakness (principal); D75.89 Other specified diseases of blood and blood-forming organs; E11.51 Type 2 diabetes mellitus with diabetic peripheral angiopathy without gangrene; I10 Essential (primary) hypertension; E78.5 Hyperlipidemia, unspecified; S93.402A Sprain of unspecified ligament of left ankle, initial encounter; W19.XXXA Unspecified fall, initial encounter; J44.9 Chronic obstructive pulmonary disease, unspecified; F10.20 Alcohol dependence, uncomplicated; Z79.84 Long term (current) use of oral hypoglycemic drugs; Z79.899 Other long term (current) drug therapy; Z79.82 Long term (current) use of aspirin
CPT/HCPCS: 96372 ×4; 99285; 36415; 94640 ×6; 93306; 97116; 97162; 97530; 97535; 97166; 80061; 80053 ×2; 80048; 82607; 83735; 85025; 85027 ×2; 81003; 82306; 83036; 73562; 73610; 93880; 72125; 70450; 70551; G0378 ×6; J1650 ×4; Q9957